=== PATIENT | male | born 1930 | race Caucasian/White ===

== ENCOUNTER → 2016-09-15 | Outpatient (CLI) | payer MEDICARE | LOC: RAD 09:17 | PROVIDERS: ATTEND Internal Medicine Cardiovascular Disease | DX: I10 Essential (primary) hypertension (principal); I42.9 Cardiomyopathy, unspecified | CPT/HCPCS: 93306 ==

== ENCOUNTER 2016-12-10 08:17 | Emergency (ER) | payer MEDICARE ==
[~2016-12-10] VITALS: Ht 170.2 cm; Wt 89.0 kg
--- OUTSIDE RECORDS SUMMARY | 2016-12-10 08:22 | XMS REPORT | Continuity of Care Document ---
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 09/15/2016 DEANA ENRIQUEZ COSTY S Ot I10 ESSENTIAL (PRIMARY) HYPERTENSION 09/15/2016 DEANA ENRIQUEZ COSTY S Ot 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 09/15/2016 DEANA ENRIQUEZ COSTY S Ot 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 09/15/2016 DEANA ENRIQUEZ COSTY S Ot I10 ESSENTIAL (PRIMARY) HYPERTENSION 09/17/2016 DEANA ENRIQUEZ COSTY S Ot I10 ESSENTIAL (PRIMARY) HYPERTENSION 09/18/2016 DEANA ENRIQUEZ COSTY S Ot I10 ESSENTIAL (PRIMARY) HYPERTENSION 09/22/2016 DEANA ENRIQUEZ COSTY S Ot I10 ESSENTIAL (PRIMARY) HYPERTENSION 09/22/2016 JENNI LEBLANC MDY S Ot I42.9 CARDIOMYOPATHY, UNSPECIFIED 10/09/2016 ELIJAH LEBLANC MD S Ot I10 ESSENTIAL (PRIMARY) HYPERTENSION 10/09/2016 ELIJAH LEBLANC MD S Ot I42.9 CARDIOMYOPATHY, UNSPECIFIED 10/11/2016 DEANA ENRIQUEZ COSTMyles S Ot I10 ESSENTIAL (PRIMARY) HYPERTENSION 10/11/2016 ELIJAH LEBLANC MD S Ot I42.9 CARDIOMYOPATHY, UNSPECIFIED Procedures Results Encounters ACCT No. Visit Date/Time Discharge Status Pt. Type Provider Facility Loc./Unit Complaint [id number] 09/15/2016 09:17:00 ACT Outpatient DEANA ENRIQUEZ, [facility] RAD CARDIOMYOPATHY I42.9, HTN I1O [id number] 12/07/2015 13:30:00 ACT Outpatient DEANA ENRIQUEZ, [facility] RAD Q25.3 AORTIC STENOSIS
[2016-12-10] MEDS: meTOprolol 5 MG/5 ML (LOPRESSOR) VIAL IV ONE ×3 (08:58→09:30)
[2016-12-10 09:06] LABS: BASOPHILS % (AUTO) 0 % (0-2); EOSINOPHILS % (AUTO) 0 % (0-4); LYMPHOCYTES # (AUTO) 1.1 X10^3; MEAN CORPUSCULAR HGB CONC 34.2 g/dL (31.0-37.0); MEAN CORPUSCULAR VOLUME 93 FL (80-100); MEAN PLATELET VOLUME 9.5 FL (6.0-9.5); MONOCYTES # (AUTO) 0.7 X10^3; MONOCYTES % (AUTO) 9 % (3-11); NEUTROPHILS # (AUTO) 5.7 X10^3; NEUTROPHILS % (AUTO) 76 % (51-67); PLATELET COUNT 226 10^3uL (150-450); WHITE BLOOD COUNT 7.46 10^3uL (4.0-11.0)
[2016-12-10 09:08] LABS: MEAN CORPUSCULAR HEMOGLOBIN 31.9 PG (26.0-34.0)
[2016-12-10 09:17] LABS: ALBUMIN 4.2 g/dL (3.4-5.0); ANION GAP 19.5 MEQ/L (3-15); CALCULATED IONIZED CALCIUM 3.9 mg/dL (3.8-4.6); TOTAL PROTEIN 7.2 g/dL (6.4-8.5)
[2016-12-10] MEDS ORDERED: APIX2.5T2 (09:18)
[2016-12-10] MEDS ORDERED: FNST5T (09:18)
[2016-12-10] MEDS ORDERED: OXYB15TA (09:18)
[2016-12-10] MEDS ORDERED: TAMS0.4C2 PO (09:18)
[2016-12-10] MEDS ORDERED: CARB200T5 (09:18)
[2016-12-10] MEDS ORDERED: [UNRECOGNIZED DRUG - OTHER] (09:18)
[2016-12-10] MEDS ORDERED: FURO20TA4 PO (09:19)
--- NOTE | 2016-12-10 09:46 | Diagnostic Imaging Report ---
EXAMINATION: Chest radiograph, portable AP view. DATE: 12/10/2016 at 0928 hours. INDICATION: 86-year-old male, chest pain. COMPARISON: None. FINDINGS: Heart size is at the upper limits of normal. The aorta is unfolded. There is no identified pneumothorax. There is elevation of the right hemidiaphragm. There is no large pleural effusion. There is no definite focal airspace consolidation. There are severe right glenohumeral degenerative changes. IMPRESSION: 1. Elevation of the right hemidiaphragm without definite acute cardiopulmonary abnormality. Dictated by: Dictated on workstation # [id number]
[2016-12-10] MEDS: DILTIAZEM 25 MG/5 ML (CARDIZEM) VIAL IV ONE (09:56)
--- NOTE | 2016-12-10 10:13 | NUR ---
DR DEANA MORROWD FOR DR RICH TO DISCUSS PT. CL
[2016-12-10 10:51] VITALS: BP 122/76
== END 2016-12-10 10:53 | disposition home or self-care (01) ==
LOC: EDUNIT# 08:17 → ED 08:19
DX: I48.91 Unspecified atrial fibrillation (principal)
CPT/HCPCS: 36415; 71010; 80053; 84484; 85025; 93005; 93010; 96374; 96375; 96376; 99284; 99291